=== PATIENT | female | born 1975 | race Caucasian/White ===

== ENCOUNTER → 2024-10-04 11:13 | Outpatient (REF) | payer BC, SELFPAY | LOC: HWEVLT 11:13 | PROVIDERS: ATTENDING PHYSICIAN Radiology Vascular & Interventional Radiology | DX: I83.893 Varicose veins of bilateral lower extremities with other complications (principal) | CPT/HCPCS: 93970 ==

== ENCOUNTER → 2024-10-23 13:29 | Outpatient (REF) | payer BC, SELFPAY | LOC: HWEVLT 13:29 | PROVIDERS: ATTENDING PHYSICIAN Radiology Vascular & Interventional Radiology | DX: I83.892 Varicose veins of left lower extremity with other complications (principal) | CPT/HCPCS: 36478; C1769 ==

== ENCOUNTER → 2024-10-31 09:54 | Outpatient (REF) | payer BC, SELFPAY | LOC: HWEVLT 09:54 | PROVIDERS: ATTENDING PHYSICIAN Radiology Vascular & Interventional Radiology | DX: I83.92 Asymptomatic varicose veins of left lower extremity (principal) | CPT/HCPCS: 93971 ==

== ENCOUNTER → 2024-11-13 09:49 | Outpatient (REF) | payer BC, SELFPAY | LOC: HWEVLT 09:49 | PROVIDERS: ATTENDING PHYSICIAN Radiology Vascular & Interventional Radiology | DX: I83.892 Varicose veins of left lower extremity with other complications (principal) | CPT/HCPCS: 93971 ==

== ENCOUNTER → 2024-11-20 13:05 | Outpatient (REF) | payer BC, SELFPAY | LOC: HWEVLT 13:05 | PROVIDERS: ATTENDING PHYSICIAN Radiology Vascular & Interventional Radiology | DX: I83.892 Varicose veins of left lower extremity with other complications (principal) | CPT/HCPCS: 93971 ==

== ENCOUNTER → 2024-11-29 11:05 | Outpatient (REF) | payer BC, SELFPAY | LOC: HWEVLT 11:05 | PROVIDERS: ATTENDING PHYSICIAN Radiology Vascular & Interventional Radiology | DX: I83.892 Varicose veins of left lower extremity with other complications (principal) | CPT/HCPCS: 93971 ==

== ENCOUNTER → 2024-12-12 12:31 | Outpatient (REF) | payer BC, SELFPAY | LOC: HWEVLT 12:31 | PROVIDERS: ATTENDING PHYSICIAN Radiology Vascular & Interventional Radiology | DX: I83.892 Varicose veins of left lower extremity with other complications (principal) | CPT/HCPCS: 93971 ==